=== PATIENT | male | born 1970 | race Caucasian/White ===

== ENCOUNTER 2018-09-07 08:35 | Outpatient (REF) | payer OTHER, SELFPAY ==
[2018-09-07 12:36] LABS: Anion Gap 11.5 mmol/L (3-11); BUN 16 mg/dL (7-18); CO2 27.5 mmol/L (21.0-32.0); CREATININE 0.95 mg/dL (0.70-1.30); Calcium 8.7 mg/dL (8.5-10.1); Chloride 103 mmol/L (98-107); Glucose 111 mg/dL (70-100); Potassium 4.7 mmol/L (3.5-5.1); Sodium 142 mmol/L (136-145)
== END 2018-09-07 08:55 ==
LOC: NCHCN 08:35
PROVIDERS: PCP Nurse Practitioner Family; Visit Provider Nurse Practitioner Family
DX: E21.0 Primary hyperparathyroidism (principal)
CPT/HCPCS: 80048

== ENCOUNTER 2019-01-27 08:08 | Outpatient (REF) | payer OTHER, SELFPAY ==
[2019-01-27 13:34] LABS: BUN 17 mg/dL (7-18); CREATININE 1.04 mg/dL (0.70-1.30); Calcium 8.4 mg/dL (8.5-10.1); Chloride 103 mmol/L (98-107); Cholesterol 195 mg/dL (50-200); Glucose 93 mg/dL (70-100); HDL Cholesterol 30 mg/dL (40-60); LDL CHOLESTEROL 143 mg/dL (<100); Potassium 4.6 mmol/L (3.5-5.1); Sodium 142 mmol/L (136-145); Triglyceride 110 mg/dL (30-150)
== END 2019-01-27 08:28 ==
LOC: NCHCN 08:08
PROVIDERS: PCP Nurse Practitioner Family; Visit Provider Nurse Practitioner Family
DX: E21.0 Primary hyperparathyroidism (principal); E78.5 Hyperlipidemia, unspecified
CPT/HCPCS: 80048; 80061; 83721

== ENCOUNTER 2019-02-28 07:50 | Emergency (ER) | payer OTHER, SELFPAY ==
[2019-02-28 07:54] VITALS: BP 123/82; PULSE 64; RESP 16; TEMP 36.5; O2SAT 97
--- NOTE | 2019-02-28 07:55 | W.ED.GENAD ---
Discharge Plan Disposition Patient Disposition: HOME Condition: Stable Discharge Details Chief Complaint: Vascular Clinical Impression: DVT (deep venous thrombosis) Primary Care Provider: Destini Bajwa ED Provider: Enid Stephens Home Meds and New Rx's Prescriptions: New Eliquis 5 mg tablet See Rx Instructions .ROUTE .COMPLEX Qty: 68 RF: 0 Discontinued ibuprofen [Advil Liqui-Gel] 200 MG capsule 600 mg PO Q6H PRN Qty: 0 RF: 0 No Action Probiotic 1 EACH capsule 2 ea PO HS RF: 0 acetaminophen [Tylenol Extra Strength] 500 MG tablet 500 mg PO PRN PRNRF: 0 bupropion HCl [Wellbutrin SR] 150 mg Tablet Sustained-Release 12 Hr 150 mg PO BID RF: 0 Glucosamine Chondroitin PLUS [id number] mg Capsule 1 cap PO BID RF: 0 triamcinolone acetonide 0.1 % Cream 1 applic TOPICAL DAILY RF: 0 magnesium 250 mg Tablet 250 mg PO DAILY RF: 0 Discharge Instructions Instructions: Apixaban (By mouth) Additional Instructions: Please return immediately to the emergency department if you develop any new or worsening symptoms or if you become otherwise concerned. It is extremely important that you call as soon as possible to schedule a follow-up appointment with your primary care doctor in follow-up this visit. Referrals: Destini Bajwa [Primary Care Provider] - Medical Decision Making Omi Vega is a 48-year-old man with history of diverticulitis status post bowel resection and ostomy reversal, hyperparathyroidism status post parathyroid resection who presented to the emergency department with mild lower extremity cramping over the past few months and sudden onset left posterior calf pain that was severe this morning and has now improved. On exam patient is very well and nontoxic appearing. Cardiopulmonary exam is benign. Left posterior calf is tender to palpation without skin changes or edema. Concern for DVT versus metabolic/lyte disturbance versus nonspecific myalgia versus other. Suspect episode of lightheadedness secondary to severe pain, doubt arrhythmia. Exam/history is not consistent with myositis, cellulitis, other infectious etiology, emergent bony pathology, pulmonary embolism, ACS. Plan for screening labs, EKG, ultrasound. Calcium borderline, 1000mg PO calcium carbonate given. Ultrasound positive for DVT. INR sent and resulted as normal. Patient without significant risk for bleeding and is appropriate for outpatient therapy with Eliquis. Had a lengthy discussion with the patient regarding risks and benefits of Eliquis for treatment, and patient is amenable to this plan. Had a lengthy discussion with the patient and his regarding return to emergency department precautions, importance of outpatient follow-up with his PCP, and home care. Patient verbalized understanding of the plan and was amenable. Patient was discharged home with clear plan for outpatient follow-up and was placed on care management list for outpatient follow-up. All questions were answered. Medical Records Medical records reviewed: Yes I reviewed the patient's medical records. Lab Data Lab results reviewed: Yes I reviewed the patient's lab results. Laboratory Tests Range/Units 02/28/19 02/28/19 02/28/19 08:25 08:25 08:25 WBC (4.4-10.8) k/cumm 6.39 RBC (4.50-6.00) m/cumm 5.22 Hgb (13.5-17.5) g/dL 14.6 Hct (40.0-50.0) % 43.6 MCV (80-95) fL 83.5 MCH (27.0-33.0) pg 28.0 MCHC (32.0-36.0) g/dL 33.5 RDW (11.8-14.1) % 13.7 Plt Count (130-400) x1000/uL 207 MPV (8.0-11.0) fL 9.4 Immature Gran % 0.2 Neutrophils % 69.8 Lymphocytes % 18.2 Monocytes % 8.0 Eosinophils % 3.3 Basophils % 0.5 Absolute Neutrophils (1.2-6.7) k/cumm 4.47 Absolute Lymphocytes (1.2-3.4) k/cumm 1.16 L Absolute Monocytes (0.11-0.7) k/cumm 0.51 Absolute Eosinophils (0.0-0.7) k/cumm 0.21 Absolute Basophils (0.0-0.2) k/cumm 0.03 Sodium (136-145) mmol/L 136 Potassium (3.5-5.1) mmol/L 4.1 Chloride (98-107) mmol/L 101 Carbon Dioxide (21.0-32.0) mmol/L 25.3 Anion Gap (3-11) mmol/L 9.7 BUN (7-18) mg/dL 14 Creatinine (0.70-1.30) mg/dL 1.17 Estimated GFR/1.73 m2 (mL/min/1.73m2) >= 60.00 Glucose (70-100) mg/dL 167 H Calcium (8.5-10.1) mg/dL 8.4 L Magnesium (1.8-2.4) mg/dL 1.9 Total Bilirubin (0.2-1.0) mg/dL 0.5 AST (15-37) U/L 17 ALT (12-78) U/L 22 Alkaline Phosphatase (46-116) U/L 32 L Total Protein (6.4-8.2) g/dL 7.4 Albumin (3.4-5.0) g/dL 3.3 L Urine Color (Yellow) Urine Clarity Urine pH (5-8) Ur Specific [place] (1.005-1.025) Urine Protein (Negative) mg/dL Urine Ketones (Negative) mg/dL Urine Blood (Negative) Urine Nitrite (Negative) Urine Bilirubin (Negative) Urine Urobilinogen (Up TO 0.2) EU/dL Ur Leukocyte Esterase (Negative) Urine Glucose (Negative) mg/dL Range/Units 02/28/19 08:30 WBC (4.4-10.8) k/cumm RBC (4.50-6.00) m/cumm Hgb (13.5-17.5) g/dL Hct (40.0-50.0) % MCV (80-95) fL MCH (27.0-33.0) pg MCHC (32.0-36.0) g/dL RDW (11.8-14.1) % Plt Count (130-400) x1000/uL MPV (8.0-11.0) fL Immature Gran % Neutrophils % Lymphocytes % Monocytes % Eosinophils % Basophils % Absolute Neutrophils (1.2-6.7) k/cumm Absolute Lymphocytes (1.2-3.4) k/cumm Absolute Monocytes (0.11-0.7) k/cumm Absolute Eosinophils (0.0-0.7) k/cumm Absolute Basophils (0.0-0.2) k/cumm Sodium (136-145) mmol/L Potassium (3.5-5.1) mmol/L Chloride (98-107) mmol/L Carbon Dioxide (21.0-32.0) mmol/L Anion Gap (3-11) mmol/L BUN (7-18) mg/dL Creatinine (0.70-1.30) mg/dL Estimated GFR/1.73 m2 (mL/min/1.73m2) Glucose (70-100) mg/dL Calcium (8.5-10.1) mg/dL Magnesium (1.8-2.4) mg/dL Total Bilirubin (0.2-1.0) mg/dL AST (15-37) U/L ALT (12-78) U/L Alkaline Phosphatase (46-116) U/L Total Protein (6.4-8.2) g/dL Albumin (3.4-5.0) g/dL Urine Color (Yellow) Yellow Urine Clarity Clear Urine pH (5-8) 5.5 Ur Specific [place] (1.005-1.025) 1.025 Urine Protein (Negative) mg/dL Negative Urine Ketones (Negative) mg/dL Negative Urine Blood (Negative) Negative Urine Nitrite (Negative) Negative Urine Bilirubin (Negative) Negative Urine Urobilinogen (Up TO 0.2) EU/dL 0.2 Ur Leukocyte Esterase (Negative) Negative Urine Glucose (Negative) mg/dL Negative ECG Data Attestation: I personally reviewed and interpreted this ECG (s) as follows: Interpretation: EKG shows sinus rhythm at 63 with normal axis, no STEMI, no burgada/HOCM/WPW/long QT, non-diagnostic EKG HPI General Mode of arrival: ambulatory. Date/Time Provider Initiated Documentation: 02/28/19 07:55. Limitations to Documentation: no limitations. Information obtained by: patient, family and RN notes reviewed. HPI Narrative: Omi Vega is a 48-year-old man with history of diverticulitis with bowel perforation 2017 status post bowel resection, ostomy, and ostomy reversal 2018, hyperparathyroidism status post parathyroid resection presenting to the emergency department with left calf pain. Patient reports that over the past few months he has had intermittent cramping of both calves, worse at night, worse in the right calf. Patient reports that this morning, he was standing in line when he had sudden onset severe cramping in the left posterior calf. Has never had similar severe cramping in the past. Patient reports that he also became somewhat lightheaded and was sweating during the episode. Patient sat down. He reports that the pain in his calf gradually improved. He reports that he still has mild pain in the left posterior calf. He denies any other pain. He has had mild cold symptoms over the past week with nasal congestion and mild cough, but reports that other than calf pain this morning has been feeling well in his usual state of health. He denies shortness of breath, vomiting, diarrhea, numbness, weakness the extremities, swelling, skin redness. Uses chewing tobacco, denies alcohol/drug use. No recent travel or mobilization. Has been eating and drinking as usual. No other recent episodes of near syncope, no history of fainting. No recent shortness of breath/chest pain/presyncopal symptoms during exertion. Related Data Home Medications Medication Instructions Recorded Confirmed Probiotic 2 ea PO HS 07/16/17 02/28/19 acetaminophen [Tylenol Extra 500 mg PO PRN PRN 08/27/17 02/28/19 Strength] apixaban [Eliquis] See Rx Instructions .ROUTE 02/28/19 .COMPLEX #68 tab bupropion HCl [Wellbutrin SR] 150 mg PO BID 02/28/19 02/28/19 [id number] 1 cap PO BID 02/28/19 02/28/19 [Glucosamine Chondroitin PLUS] magnesium 250 mg PO DAILY 02/28/19 02/28/19 triamcinolone acetonide 1 applic TOPICAL DAILY 02/28/19 02/28/19 Previous Rx's Medication Instructions Recorded apixaban [Eliquis] See Rx Instructions .ROUTE 02/28/19 .COMPLEX #68 tab Allergies Allergy/AdvReac Type Severity Reaction Status Date / Time Penicillins Allergy Severe Anaphylaxsi Unverified 02/28/19 08:01 s Review of Systems Review of Systems Constitutional: denies fevers Eyes: denies eye pain ENT: denies facial pain, dental pain, sore throat Cardiovascular: denies chest pain Respiratory: denies SOB, reports mild cough GI: denies abdominal pain, vomiting, diarrhea : denies flank pain MSK: denies back pain, neck pain, arthralgias, reports myalgias as per HPI Skin: denies rash Neuro: denies headaches, numbness, weakness [facility] Medical History Diverticular disease of colon Dyspepsia Primary hyperparathyroidism Renal calculus, left Surgical History Colectomy (09/23/17) Colonoscopy - MAC (09/09/17) Parathyroidectomy Tonsillectomy and adenoidectomy Social History Smoking/Tobacco Use Status: Current every day Tobacco Type: smokeless tobacco Alcohol Intake: current Alcohol Intake frequency: a few times a month Drug use: Never Do you feel safe at home: Yes Do you feel safe in your relationship?: Yes Exam Narrative Exam Narrative: Constitutional: well and [id number], pleasant, conversing normally HENT: head atraumatic/normocephalic/normal inspection, mucous membranes moist Eyes: conjunctiva normal, sclera normal, pupils 3mm b/l Neck: no stridor, normal ROM, trachea midline Resp: normal work of breathing, LCTAB Cardio: normal rate, normal rhythm, no murmur appreciated Skin: warm, dry, normal color, no rash Neuro: alert, not altered, grossly non-focal, normal tone Ext: no lower extremity edema, mild tenderness palpation left posterior calf and left popliteal area, no rash or overlying skin changes, no induration or mass noted, DP pulses intact and symmetric, normal range of motion of the left knee and ankle without pain Psych: normal mood, normal affect, normal behavior
[2019-02-28 07:59] VITALS: RESP 16
--- NOTE | 2019-02-28 08:14 | DI.US_ITS ---
SYMPTOM/DIAGNOSIS: LEFT CALF PAIN LEFT LOWER EXTREMITY ULTRASOUND: There is hypoechoic occlusive thrombus seen extending from the left femoral vein in to the popliteal vein and the distal posterior tibialis vein. The saphenofemoral junction appears unremarkable. No focal fluid collection is seen in the left lower extremity. IMPRESSION: Findings consistent with a left lower extremity deep venous thrombus extending from the distal left femoral vein through the popliteal vein in to the distal posterior tibialis vein. The findings were discussed with the Emergency Department on the date of the examination.
[2019-02-28 08:34] LABS: Abs Immature Grans 0.01 k/cumm (0.0-0.09); Absolute Basophil Count 0.03 k/cumm (0.0-0.2); Absolute Eosinophil Count 0.21 k/cumm (0.0-0.7); Absolute Lymphocyte Count 1.16 k/cumm (1.2-3.4); Absolute Monocyte Count 0.51 k/cumm (0.11-0.7); Absolute Neutrophil Count 4.47 k/cumm (1.2-6.7); Basophils % 0.5; Eosinophils % 3.3; HCT 43.6 % (40.0-50.0); HGB 14.6 g/dL (13.5-17.5); Immature Grans % 0.2; Lymphocytes % 18.2; Mean Corp. HGB Concentration 33.5 g/dL (32.0-36.0); Mean Corpuscular Volume 83.5 fL (80-95); Mean Platelet Volume 9.4 fL (8.0-11.0); Neutrophils % 69.8; Platelet Count 207 x1000/uL (130-400); RBC 5.22 m/cumm (4.50-6.00); RBC Distribution Width 13.7 % (11.8-14.1); White Blood Cell Count 6.39 k/cumm (4.4-10.8)
[2019-02-28 08:36] LABS: Bilirubin Negative (Negative); Blood Negative (Negative); Clarity Clear; Glucose Negative (Negative); Ketones Negative (Negative); Leukocyte Esterase Negative (Negative); Nitrite Negative (Negative); Specific Gravity 1.025 (1.005-1.025); Urobilinogen 0.2 EU/dL (Up TO 0.2); pH 5.5 (5-8)
[2019-02-28 08:46] LABS: ALT 22 U/L (12-78); AST 17 U/L (15-37); Albumin 3.3 g/dL (3.4-5.0); Alkaline Phosphatase 32 U/L (46-116); Anion Gap 9.7 mmol/L (3-11); BUN 14 mg/dL (7-18); Bilirubin, Total 0.5 mg/dL (0.2-1.0); CO2 25.3 mmol/L (21.0-32.0); CREATININE 1.17 mg/dL (0.70-1.30); Calcium 8.4 mg/dL (8.5-10.1); Chloride 101 mmol/L (98-107); Glucose 167 mg/dL (70-100); Potassium 4.1 mmol/L (3.5-5.1); Sodium 136 mmol/L (136-145); Total Protein 7.4 g/dL (6.4-8.2)
[2019-02-28 09:12] LABS: Magnesium 1.9 mg/dL (1.8-2.4)
[2019-02-28] MEDS: Calcium Carbonate *TUMS* 500 MG CHEW 1000 MG PO (09:22)
[2019-02-28 10:42] VITALS: BP 116/76; PULSE 59; RESP 16; TEMP 36.5; O2SAT 96
[2019-02-28 11:06] LABS: INR 0.9 (0.9-1.1); Prothrombin Time 9.4 sec (9.3-11.0)
[2019-02-28] MEDS: Apixaban 5 MG TAB 10 MG PO (11:22)
[2019-02-28 11:32] VITALS: BP 116/76; PULSE 59; RESP 16; TEMP 36.5; O2SAT 96
--- NOTE | 2019-02-28 11:34 | NUR.NOTE ---
Nursing Note: Referral faxed to [facility] for follow up. Ary Ha.
== END 2019-02-28 11:34 | disposition home or self-care (01) ==
PROVIDERS: Emergency Provider Student in an Organized Health Care Education/Training Program; PCP Nurse Practitioner Family
DX: I82.432 Acute embolism and thrombosis of left popliteal vein (principal); I82.412 Acute embolism and thrombosis of left femoral vein; I82.442 Acute embolism and thrombosis of left tibial vein
CPT/HCPCS: 36415; 80053; 93005; 99285; 81003; 83735; 85025; 85610; 93010; 93971

== ENCOUNTER 2019-05-26 03:50 | Outpatient (CLI) | payer OTHER, SELFPAY ==
--- NOTE | 2019-05-26 15:57 | DI.US_ITS ---
SYMPTOM/DIAGNOSIS: DVT, I 82.90, 3-MO F/U DUPLEX VENOUS ULTRASOUND LEFT LOWER EXTREMITY: 05/26 Duplex evaluation of the deep venous system of the left lower extremity was performed according to the usual protocol. The previous examination of 02/28/2019 showed DVT from the left distal femoral vein through the popliteal vein in to tibialis posterior veins. On today's examination the femoral vein distally is compressible. There is visible thrombus in popliteal vein and posterior tibial vein. CONCLUSION: Recurrent or persistent popliteal/posterior tibial DVT. The previously noted DVT in the distal femoral vein is less prominent or absent on today's examination.
== END 2019-05-26 04:10 ==
PROVIDERS: PCP Nurse Practitioner Family; Visit Provider Nurse Practitioner Family
DX: I82.432 Acute embolism and thrombosis of left popliteal vein (principal); I82.442 Acute embolism and thrombosis of left tibial vein
CPT/HCPCS: 93971

== ENCOUNTER 2019-09-20 08:53 | Outpatient (CLI) | payer OTHER, SELFPAY ==
--- NOTE | 2019-09-20 12:28 | DI.US_ITS ---
EXAM: US LOWER EXTREMITY VENOUS LT US LOWER EXTREMITY VENOUS LT CLINICAL HISTORY: DVT I82.90, F/U DVT 05/2019. DVT I82.90, F/U DVT 05/2019 TECHNIQUE: Ultrasound performed using standard protocol. COMPARISON: US LOWER EXTREMITY VASCULAR LT from 05/26/2019 FINDINGS: Duplex venous ultrasound was performed according to the usual protocol. The deep veins are freely com pressible throughout and there is normal flow augmentation with manual calf compression. 2D and Doppl er evaluation are unremarkable. IMPRESSION: No evidence of deep venous thrombosis of the lower extremity
== END 2019-09-20 09:13 ==
PROVIDERS: PCP Nurse Practitioner Family; Visit Provider Nurse Practitioner Family
DX: I82.432 Acute embolism and thrombosis of left popliteal vein (principal)
CPT/HCPCS: 93971

== ENCOUNTER 2020-07-30 10:19 | Outpatient (REF) | payer OTHER, SELFPAY ==
[2020-07-30 19:14] LABS: Anion Gap 11.2 mmol/L (3-11); BUN 17 mg/dL (7-18); CO2 26.8 mmol/L (21.0-32.0); CREATININE 1.17 mg/dL (0.70-1.30); Calcium 8.4 mg/dL (8.5-10.1); Calculated LDL 157 mg/dL (<100); Chloride 102 mmol/L (98-107); Cholesterol 219 mg/dL (<200); Glucose 111 mg/dL (74-106); HDL Cholesterol 32 mg/dL (40-60); Potassium 4.4 mmol/L (3.5-5.1); Sodium 140 mmol/L (136-145); Triglyceride 153 mg/dL (<150)
[2020-08-01 14:39] LABS: PSA, Screening 0.4 ng/mL (0-3.5)
== END 2020-07-30 10:39 ==
LOC: NCHCN 10:19
PROVIDERS: PCP Nurse Practitioner Family; Visit Provider Physician Assistant
DX: E21.0 Primary hyperparathyroidism (principal); E78.5 Hyperlipidemia, unspecified; Z12.5 Encounter for screening for malignant neoplasm of prostate
CPT/HCPCS: 80048; 80061; 84153

== ENCOUNTER 2021-09-17 08:18 | Outpatient (REF) | payer OTHER, SELFPAY ==
[2021-09-17 15:01] LABS: Anion Gap 10.4 mmol/L (3-11); BUN 22 mg/dL (7-18); CO2 26.6 mmol/L (21.0-32.0); CREATININE 1.2 mg/dL (0.70-1.30); Calcium 8.7 mg/dL (8.5-10.1); Calculated LDL 154 mg/dL (<100); Chloride 104 mmol/L (98-107); Cholesterol 229 mg/dL (<200); Glucose 117 mg/dL (74-106); HDL Cholesterol 34 mg/dL (40-60); Potassium 4.9 mmol/L (3.5-5.1); Sodium 141 mmol/L (136-145); Triglyceride 207 mg/dL (<150)
== END 2021-09-17 08:19 | disposition home or self-care (01) ==
LOC: NCHCN 08:18
PROVIDERS: PCP Nurse Practitioner Family; Visit Provider Nurse Practitioner Family
DX: Z00.00 Encounter for general adult medical examination without abnormal findings (principal); E78.5 Hyperlipidemia, unspecified
CPT/HCPCS: 80048; 80061

== ENCOUNTER 2023-01-15 13:23 | Outpatient (REF) | payer OTHER, SELFPAY ==
[2023-01-15 15:53] LABS: Abs Immature Grans 0.02 10^3/uL (0.0-0.06); Absolute Basophil Count 0.05 10^3/uL (0.0-0.2); Absolute Eosinophil Count 0.13 10^3/uL (0.0-0.7); Absolute Lymphocyte Count 1.87 10^3/uL (1.2-3.4); Absolute Monocyte Count 0.62 10^3/uL (0.1-0.8); Absolute Neutrophil Count 4.53 10^3/uL (1.2-6.7); Basophils % 0.7; Eosinophils % 1.8; HCT 46.5 % (40.0-50.0); HGB 15.5 g/dL (13.5-17.5); Immature Grans % 0.3; Lymphocytes % 25.9; MCH 28.5 pg (27.0-33.0); MCHC 33.3 % (32.0-36.0); MCV 86 fL (80-95); MPV 9.8 fL (8.0-11.0); Monocytes % 8.6; Neutrophils % 62.7; Platelet Count 239 10^3/uL (130-400); RBC 5.43 10^6/uL (4.36-5.78); RDW 12.5 % (11.8-14.1); RDW-SD 38.6 fL; WBC 7.22 10^3/uL (4.4-10.8)
[2023-01-15 16:17] LABS: ALT 30 U/L (16-63); AST 19 U/L (15-37); Albumin 3.8 g/dL (3.4-5.0); Alkaline Phosphatase 35 U/L (46-116); Anion Gap 9.9 mmol/L (3-11); BUN 21 mg/dL (7-18); Bilirubin, Total 0.7 mg/dL (0.2-1.0); CO2 26.1 mmol/L (21.0-32.0); CREATININE 1.1 mg/dL (0.70-1.30); Calcium 8.4 mg/dL (8.5-10.1); Calculated LDL 140 mg/dL (<100); Chloride 103 mmol/L (98-107); Cholesterol 204 mg/dL (<200); Estimated GFR 79.77 (mL/min/1.73m2); Glucose 112 mg/dL (74-106); HDL Cholesterol 33 mg/dL (40-60); Potassium 4.3 mmol/L (3.5-5.1); Sodium 139 mmol/L (136-145); TSH (W/Ref FT4) 1.03 uIU/mL (0.36-3.74); Total Protein 7.8 g/dL (6.4-8.2); Triglyceride 157 mg/dL (<150)
[2023-01-15 17:19] LABS: Hemoglobin A1C 5.9 % (<5.7)
[2023-01-17 11:49] LABS: HIV-1/2 Ag & Ab Screen Negative (Negative)
[2023-01-19 11:04] LABS: Hepatitis C Ab w Rflx HCV PCR Negative (Negative)
== END 2023-01-15 13:24 | disposition home or self-care (01) ==
LOC: NCHCN 13:23
PROVIDERS: PCP Nurse Practitioner Family; Visit Provider Nurse Practitioner Family
DX: Z71.89 Other specified counseling (principal); R73.03 Prediabetes; E21.0 Primary hyperparathyroidism; K57.30 Diverticulosis of large intestine without perforation or abscess without bleeding; E78.5 Hyperlipidemia, unspecified; F17.220 Nicotine dependence, chewing tobacco, uncomplicated; Z86.718 Personal history of other venous thrombosis and embolism; Z79.01 Long term (current) use of anticoagulants
CPT/HCPCS: 80053; 80061; 86803; 87389; 83036; 84443; 85025

== ENCOUNTER 2023-05-06 10:57 | Outpatient (REF) | payer OTHER, SELFPAY ==
[2023-05-06 16:19] LABS: ALT 22 U/L (16-63); AST 14 U/L (15-37); Albumin 3.6 g/dL (3.4-5.0); Alkaline Phosphatase 32 U/L (46-116); Anion Gap 11.4 mmol/L (3-11); BUN 15 mg/dL (7-18); Bilirubin, Total 0.9 mg/dL (0.2-1.0); CO2 27.6 mmol/L (21.0-32.0); Chloride 104 mmol/L (98-107); Estimated GFR 89.44 (mL/min/1.73m2); Glucose 98 mg/dL (74-106); Potassium 4.9 mmol/L (3.5-5.1); Sodium 143 mmol/L (136-145); Total Protein 7.5 g/dL (6.4-8.2)
[2023-05-06 17:51] LABS: Vitamin D 25 Total 26.6 ng/mL (30-100)
== END 2023-05-06 10:58 | disposition home or self-care (01) ==
LOC: NCHCN 10:57
PROVIDERS: PCP Nurse Practitioner Family; Visit Provider Nurse Practitioner Family
DX: R73.03 Prediabetes (principal); E21.0 Primary hyperparathyroidism; E55.9 Vitamin D deficiency, unspecified
CPT/HCPCS: 80053; 82306

== ENCOUNTER 2023-05-15 09:51 | Day surgery (SDC) | payer OTHER, SELFPAY ==
--- NOTE | 2023-05-14 19:58 | PDOC.DSDIS_ITS ---
Date of service: 05/15/23 Time of Service: 11:19 Discharge Plan Disposition Patient Disposition: Home Condition: Good Discharge Details Reason For Visit: colon scope Attending Provider: Ashley Martini Primary Care Provider: REMIGIO DEMPSEY Home Meds and New Rx's Prescriptions: Continued calcium carbonate-vitamin D3 [Calcium 600 with Vitamin D3] 600 mg-12.5 mcg (500 unit) capsule 1 cap PO BID enoxaparin [Lovenox] 100 mg/mL syringe 90 mg subcut Q12H Qty: 10 0RF Rx Instructions: last injection should be given 12 hours before arrival time to hospital for procedure Probiotic 1 EACH capsule 2 ea PO HS acetaminophen [Tylenol Extra Strength] 500 MG tablet 500 mg PO PRN PRN triamcinolone acetonide 0.1 % Cream 1 applic TOPICAL DAILY Held Eliquis 5 mg tablet 5 mg PO BID Hold Instructions: Resume on 05/18/23. Discontinued polyethylene glycol 3350 17 gram/dose powder 238 g PO ONCE Qty: 238 0RF Rx Instructions: take per colonoscopy instructions bisacodyl [Dulcolax (bisacodyl)] 5 mg tablet,delayed release (DR/EC) 5 mg PO ONCE Qty: 4 0RF Rx Instructions: take per colonoscopy instructions Discharge Instructions Additional Instructions: DSU Colonoscopy Post- Op Instructions Instructions for Everyone who is given Anesthes ia: For your safety, please do the following for the next twenty-four (24) hours: *Do Not operate a motor vehicle (car, truck, motorcycle, etc.) *Do Not drink alcoholic beverages or use any recreational drugs for the first 24 hours or while taking pain medications. The medications in your body may have a reaction that can be dangerous. *Do Not make any important decisions or sign any important papers. Findings: Minor diverticula of the left colon. Make sure you are moving your bowels on a regular basis and you are not straining to go to the bathroom. If you find you are having problems with constipation, then I recommend taking a fiber supplement such as Metamucil, daily. Follow up: Repeat colonoscopy in 10 years time 1. No lifting over 20 pounds or strenuous activity for the first 24 hours after your procedure. After 24 hours there are no restrictions on your activity but you may feel fatigued for a few days. 2. After you arrive home you may have a light meal and return to your normal diet as you can tolerate it without feeling sick to your stomach. 3. You may have a bloated, gaseous feeling in your belly (abdomen) after a colonoscopy. Passing gas and belching will help. Walking or lying down on your left side with your knees flexed may relieve the discomfort. Call the office at [phone] (Office) or [phone] (Hospital) right away if you notice any of the following: a.Vomiting of blood or ?coffee ground stools?. b.Rectal bleeding 1Tbsp, blood clots or continuous bleeding. c.Severe belly (abdominal) pain. d.A hard distended belly (abdomen) and an inability to pass gas. 4. Please don?t expect to have a normal BM (bowel movement) for 2-3 days after your procedure. 5. If there are questions regarding the findings of your procedure, please contact your doctor 6. If you are unable to contact your doctor with a problem, contact the hospital at [phone]. 7. Continue all your regular medications unless directed otherwise. I understand the above instructions and have no questions. Signature of Patient or Adult Escort Name of Responsible Adult Escort Signature of Nurse Date/Time Activity:: see above Activity:: see above Diet:: See above Discharge Orders Discharge Orders: Discharge Order (Routine); Ordered 05/15/23 Ordered By: Ashley Martini DS: Diagnosis Discharge Diagnosis (1) Screening for malignant neoplasm of colon performed: Status: Acute Asessment and Plan: The patient is seen and examined after their colonoscopy.? The patient has been able to pass gas.? They are not having abdominal pain.? They have been able to tolerate liquids and a snack.? They do not have any nausea or vomiting.? They are not having any chest pain or shortness of breath.??? They are not having any rectal bleeding. Their vital signs have been stable-see nursing notes. We discussed findings during their colonoscopy, and any biopsies that were done/polyps that were removed. The patient will be sent a letter with any biopsy results, and when to repeat the colonoscopy.-see discharge instructions. Patient was given explicit instructions to follow-up regarding colonoscopy-refer to discharge instructions.? We reviewed resumption of medications. Patient verbalized understanding and discharged in stable and satisfactory condition- See nursing notes. (2) Diverticula of colon: Status: Acute
--- NOTE | 2023-05-14 20:01 | W.COLOREPORT ---
Date of service: 05/15/23 Time of Service: 11:16 Colonoscopy Report Date of procedure: 05/15/23 Pre-op diagnosis general: crc screening Post-op diagnosis procedure note: other (Mild diverticula) Surgeon: Ashley Martini Anesthesia Type: General:No Airway Estimated blood loss (mL): 0 Pathology: none sent Complications: None Disposition: same day Prep: Miralax/Dulcolax Retraction Time: 9 Procedure Description: After informed consent was obtained the patient was taken to the procedure room and placed in a left decubitous position. Monitors were applied and a time out was done. The patients name, date of , procedure, allergies to medications and metal in their body was reviewed. The patient was then sedated. Once sedated and comfortable a rectal exam was done. External exam was normal. Internal exam revealed a normal sphincter tone and no palpable masses. The prostate normal. The scope was then introduced and retrofelexed. Grade 1 internal hemorrhoids were identified. The scope was then advanced to the cecum without difficulty. The TI and appendiceal orifice were identified. The prep was BBPS 3 in all segments for a total of 9. The patient has had a previous sigmoid resection for diverticular stricture. I did not appreciate his anastomosis. There is no stricture noted in the scope today. the scope was then slowly retracted over 9 minutes back into the rectum. there are no polyps or AVMs. There are a few small diverticula confined to the left colon. There are no signs of active bleeding or infection. The scope was removed and the patient was woken up and taken back to Same day surgery in stable condition. The patient tolerated the procedure well and there were no immediate complications. Follow up: The patient should follow up in 10 years unless they develop changes in bowel habits or other new gastrointestinal complaints.
[2023-05-15 10:33] VITALS: BP 125/88; PULSE 74; RESP 18; TEMP 36.4; O2SAT 94
--- NOTE | 2023-05-15 10:37 | W.ANESPRE ---
General Info Date of Service Date Performed: 05/15/23 Height: 5 ft 6 in Weight: 90.492 kg Body Mass Index (BMI): 32.1 Surgical Procedure: Operation Date: 05/15/23 10:35 Proposed Procedure Side Surgeon p Colonoscopy Ashley Maritni, Actual Procedure Side Surgeon p Colonoscopy Ashley Martini, DO Pre-Op Diagnosis Post-Op Diagnosis SCREENING SCREENING Meds Allergies and Home Medications Allergies Allergy/AdvReac Type Severity Reaction Status Date / Time Penicillins Allergy Severe Anaphylaxsi Unverified 05/15/23 10:25 s Home Medication Medication Instructions Recorded lactobacillus comb no.10 20 2 ea PO HS 07/16/17 billion cell capsule (Probiotic) acetaminophen 500 mg tablet 500 mg PO PRN PRN 08/27/17 (Tylenol Extra Strength) triamcinolone acetonide 0.1 % 1 applic topical DAILY 02/28/19 topical cream apixaban 5 mg tablet (Eliquis) 5 mg PO BID 04/30/23 calcium carbonate 600 mg-vitamin 1 cap PO BID 04/30/23 D3 12.5 mcg (500 unit) capsule (Calcium 600 with Vitamin D3) enoxaparin 100 mg/mL subcutaneous 90 mg (0.9 mL) subcut Q12H #10 mL 04/30/23 syringe (Lovenox) Current Visit Medications: Current Medications Generic Name Dose Route Start Last Admin Trade Name Freq PRN Reason Stop Dose Admin Hyoscyamine Sulfate 0.125 mg 05/15/23 03:13 Hyoscyamine 0.125 Mg Sl/Oral/Chew SL 06/14/23 03:12 DIRECTED PRN Ringer's Solution 1,000 mls @ 80 mls/hr 05/15/23 06:00 IV 05/15/23 23:59 [facility] IV Miscellaneous Supplies 1 each 05/15/23 06:00 Iv Access IV 05/15/23 23:59 DIRECTED BING Ondansetron HCl 4 mg 05/15/23 03:13 Ondansetron 4 Mg/2 Ml Vial IVP 06/14/23 03:12 Q4H PRN PRN Nausea / Vomiting Sodium Chloride 0 ml 05/15/23 06:00 Normal Saline Flush 10 Ml Syr IV 05/15/23 23:59 PRN PRN Sodium Chloride 0 ml 05/15/23 06:00 Normal Saline 10 Ml Vial IJ 05/15/23 23:59 DIRECTED PRN Sterile Water 0 ml 05/15/23 06:00 Water,Injection,Sterile 10 Ml Vial IJ 05/15/23 23:59 DIRECTED PRN PFSH Active Problems Active Problems: Problem Status Onset Code Screening for malignant neoplasm of colon performed Z12.11 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 Anastomotic leak of intestine K91.89 s/p ileostomy takedown Medical History Medical History Diverticular disease of colon Dyspepsia History of DVT of lower extremity 2021 Primary hyperparathyroidism s/p resection Renal calculus, left Surgical History Surgical History Colectomy (09/23/17) reversal 01/20/18 Colonoscopy - MAC (09/09/17) Parathyroidectomy Tonsillectomy and adenoidectomy Tobacco Smoking/Tobacco Use Status: Current every day Tobacco Type: smokeless tobacco Alcohol Alcohol Intake: current Alcohol intake frequency: a few times a month Substance Use Substance use: Never Substance use type: does not use Vital Signs and Lab Results Vital Signs Most Recent Vital Signs in EMR: Most Recent Vital Signs Temp Pulse Resp BP Pulse Ox 36.4 C L 74 18 125/88 94 05/15/23 10:33 05/15/23 10:33 05/15/23 10:33 05/15/23 10:33 05/15/23 10:33 Lab Results Blood Type / Crossmatch: No Data to Display Complete Blood Count: No Data to Display Complete Metabolic Panel: Sodium 143 mmol/L (136-145) 05/06/23 08:30 Potassium 4.9 mmol/L (3.5-5.1) 05/06/23 08:30 Chloride 104 mmol/L (98-107) 05/06/23 08:30 Carbon Dioxide 27.6 mmol/L (21.0-32.0) 05/06/23 08:30 BUN 15 mg/dL (7-18) 05/06/23 08:30 Creatinine 1.0 mg/dL (0.70-1.30) 05/06/23 08:30 Est GFR (CKD-EPI 2020) 89.44 (mL/min/1.73m2) 05/06/23 08:30 Calcium 9.0 mg/dL (8.5-10.1) 05/06/23 08:30 Albumin 3.6 g/dL (3.4-5.0) 05/06/23 08:30 Glucose 98 mg/dL (74-106) 05/06/23 08:30 Liver Function Panel: Alanine Aminotransferase (ALT/SGPT) 22 U/L (16-63) 05/06/23 08:30 Aspartate Amino Transf (AST/SGOT) 14 U/L (15-37) L 05/06/23 08:30 Coagulation Panel: No Data to Display Cardiac Panel: No Data to Display Arterial Blood Gas: No Data to Display Venous Blood Gas: No Data to Display Pancreas Panel: No Data to Display Thyroid Panel: No Data to Display Infectious Disease: No Data to Display Blood Cultures: No Data to Display Toxicology Panel: No Data to Display Anesthesia Assessment and Plan Anesthesia History Personal History: No History of Anesthesia Complications Family History: No Family History of Anesthesia Complications Exercise Tolerance Exercise Tolerance: Metabolic Equivalents>4 Pertinent Negatives Pertinent Negatives: No Symptoms of GERD, No Major Cardiovascular Symptoms or Complaints and No Major Pulmonary Symptoms or Complaints Cardiac & Pulmonary Exam Cardiac Exam: Normal S1/S2 Heart Sounds Pulmonary Exam: Clear Bilateral Breath Sounds Implantable Cardiac Device Does patient have a Pacemaker or an ICD?: No Airway Exam Known Difficult Airway: No Mallampati Class: 1 Mouth Opening: Normal (> 3cm) Thyromental Distance: Less than 3 cm Neck Range of Motion: Full ROM Neck Circumference: Normal Teeth Condition: Normal Dentition ASA Classification ASA Score: ASA 3 Emergency Case?: No NPO Status NPO Status: NPO Clears >2 hours, Solids >8 hours Anesthesia Plan Resuscitation Status: Full Code Anesthesia Technique: General Anesthesia Airway Planned: Natural Airway Monitors Used: Standard Monitors
[2023-05-15 10:40] VITALS: BMI 32.1
[2023-05-15] MEDS: Lactated Ringers 1,000 ML 80 ML IV (10:45)
[2023-05-15 11:18] VITALS: BP 125/88; PULSE 69; RESP 18; TEMP 36.3; O2SAT 96
--- NOTE | 2023-05-15 11:21 | ANES.PREOP_ITS ---
General Info Date of Service Date Performed: 05/15/23 Height: 5 ft 6 in Weight: 90.492 kg Body Mass Index (BMI): 32.1 Surgical Procedure: Operation Date: 05/15/23 10:35 Proposed Procedure Side Surgeon p Colonoscopy Ashley Martini, Actual Procedure Side Surgeon p Colonoscopy Ashley Martini, DO Pre-Op Diagnosis Post-Op Diagnosis SCREENING SCREENING Meds Allergies and Home Medications Allergies Allergy/AdvReac Type Severity Reaction Status Date / Time Penicillins Allergy Severe Anaphylaxsi Unverified 05/15/23 10:25 s Home Medication Medication Instructions Recorded lactobacillus comb no.10 20 2 ea PO HS 07/16/17 billion cell capsule (Probiotic) acetaminophen 500 mg tablet 500 mg PO PRN PRN 08/27/17 (Tylenol Extra Strength) triamcinolone acetonide 0.1 % 1 applic topical DAILY 02/28/19 topical cream apixaban 5 mg tablet (Eliquis) 5 mg PO BID 04/30/23 calcium carbonate 600 mg-vitamin 1 cap PO BID 04/30/23 D3 12.5 mcg (500 unit) capsule (Calcium 600 with Vitamin D3) enoxaparin 100 mg/mL subcutaneous 90 mg (0.9 mL) subcut Q12H #10 mL 04/30/23 syringe (Lovenox) Current Visit Medications: Current Medications Generic Name Dose Route Start Last Admin Trade Name Freq PRN Reason Stop Dose Admin Hyoscyamine Sulfate 0.125 mg 05/15/23 03:13 Hyoscyamine 0.125 Mg Sl/Oral/Chew SL 06/14/23 03:12 DIRECTED PRN Ringer's Solution 1,000 mls @ 80 mls/hr 05/15/23 06:00 05/15/23 11:13 IV 05/15/23 23:59 80 mls/hr INFUSION BING Infusion IV Miscellaneous Supplies 1 each 05/15/23 06:00 Iv Access IV 05/15/23 23:59 DIRECTED BING Ondansetron HCl 4 mg 05/15/23 03:13 Ondansetron 4 Mg/2 Ml Vial IVP 06/14/23 03:12 Q4H PRN PRN Nausea / Vomiting Sodium Chloride 0 ml 05/15/23 06:00 Normal Saline Flush 10 Ml Syr IV 05/15/23 23:59 PRN PRN Sodium Chloride 0 ml 05/15/23 06:00 Normal Saline 10 Ml Vial IJ 05/15/23 23:59 DIRECTED PRN Sterile Water 0 ml 05/15/23 06:00 Water,Injection,Sterile 10 Ml Vial IJ 05/15/23 23:59 DIRECTED PRN PFSH Active Problems Active Problems: Problem Status Onset Code Diverticula of colon K57.30 Screening for malignant neoplasm of colon performed Z12.11 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 Anastomotic leak of intestine K91.89 s/p ileostomy takedown Medical History Medical History (Updated 05/15/23 @ 11:21 by Ashley Martini DO) Diverticular disease of colon Dyspepsia History of DVT of lower extremity 2021 Primary hyperparathyroidism s/p resection Renal calculus, left Surgical History Surgical History Colectomy (09/23/17) reversal 01/20/18 Colonoscopy - MAC (09/09/17) Parathyroidectomy Tonsillectomy and adenoidectomy Tobacco Smoking/Tobacco Use Status: Current every day Tobacco Type: smokeless tobacco Alcohol Alcohol Intake: current Alcohol intake frequency: a few times a month Substance Use Substance use: Never Substance use type: does not use Details: pt denies chewing tobacco in last 6 hours, 05/15/23 mkb Vital Signs and Lab Results Vital Signs Most Recent Vital Signs in EMR: Most Recent Vital Signs Temp Pulse Resp BP Pulse Ox 36.4 C L 74 18 125/88 94 05/15/23 10:33 05/15/23 10:33 05/15/23 10:33 05/15/23 10:33 05/15/23 10:33 Lab Results Blood Type / Crossmatch: No Data to Display Complete Blood Count: No Data to Display Complete Metabolic Panel: Sodium 143 mmol/L (136-145) 05/06/23 08:30 Potassium 4.9 mmol/L (3.5-5.1) 05/06/23 08:30 Chloride 104 mmol/L (98-107) 05/06/23 08:30 Carbon Dioxide 27.6 mmol/L (21.0-32.0) 05/06/23 08:30 BUN 15 mg/dL (7-18) 05/06/23 08:30 Creatinine 1.0 mg/dL (0.70-1.30) 05/06/23 08:30 Est GFR (CKD-EPI 2020) 89.44 (mL/min/1.73m2) 05/06/23 08:30 Calcium 9.0 mg/dL (8.5-10.1) 05/06/23 08:30 Albumin 3.6 g/dL (3.4-5.0) 05/06/23 08:30 Glucose 98 mg/dL (74-106) 05/06/23 08:30 Liver Function Panel: Alanine Aminotransferase (ALT/SGPT) 22 U/L (16-63) 05/06/23 08: 30 Aspartate Amino Transf (AST/SGOT) 14 U/L (15-37) L 05/06/23 08: 30 Coagulation Panel: No Data to Display Cardiac Panel: No Data to Display Arterial Blood Gas: No Data to Display Venous Blood Gas: No Data to Display Pancreas Panel: No Data to Display Thyroid Panel: No Data to Display Infectious Disease: No Data to Display Blood Cultures: No Data to Display Toxicology Panel: No Data to Display Anesthesia Assessment and Plan Anesthesia History Personal History: No History of Anesthesia Complications Family History: No Family History of Anesthesia Complications Exercise Tolerance Exercise Tolerance: Metabolic Equivalents>4 Implantable Cardiac Device Does patient have a Pacemaker or an ICD?: No Airway Exam Known Difficult Airway: No Mallampati Class: 1 Mouth Opening: Normal (> 3cm) Thyromental Distance: Less than 3 cm Neck Range of Motion: Full ROM Neck Circumference: Normal Teeth Condition: Normal Dentition
--- NOTE | 2023-05-15 11:30 | W.ANESPOSTOP ---
Postoperative Evaluation Date, Time and Location Date Performed: 05/15/23 Time Performed: 11:31 Patient Location: Day Surgery Unit Vital Signs Most Recent Imported Vital Signs: Most Recent Vital Signs Temp Pulse Resp BP Pulse Ox 36.3 C L 69 18 125/88 96 05/15/23 11:18 05/15/23 11:18 05/15/23 11:18 05/15/23 11:18 05/15/23 11:18 Pain Score Most Recent Pain Score: Most Recent Pain Score Pain Level 0 05/15/23 10:33 Assessment Mental Status: Awake (Alert & Oriented to Patient Baseline) Airway and Respiratory Function: Patent airway with normal (patient baseline) respiratory exam Cardiovascular Function: Hemodynamically Stable Hydration Status: Adequately Hydrated Nausea & Vomiting: No Nausea or Vomiting Pain: Pt. Denies Any Pain Peripheral Nerve Block: Patient did not receive a nerve block
[2023-05-15 11:40] VITALS: BP 104/86; RESP 18; TEMP 36.5; O2SAT 95
== END 2023-05-15 12:13 | disposition home or self-care (01) ==
PROVIDERS: PCP Nurse Practitioner Family; Visit Provider Surgery
PROC: 0DJD8ZZ Inspection of Lower Intestinal Tract, Via Natural or Artificial Opening Endoscopic (ICD-10-PCS; CPT 45378; principal; 2023-05-15 10:30)
DX: Z12.11 Encounter for screening for malignant neoplasm of colon (principal); K57.30 Diverticulosis of large intestine without perforation or abscess without bleeding; Z98.0 Intestinal bypass and anastomosis status
CPT/HCPCS: 45378

== ENCOUNTER 2023-12-08 13:05 | Outpatient (REF) | payer OTHER, SELFPAY ==
[2023-12-08 15:54] LABS: Bilirubin Negative (Negative); Blood Large (Negative); Glucose Negative (Negative); Ketones Negative (Negative); Leukocyte Esterase Large (Negative); Nitrite Negative (Negative); Specific Gravity >= 1.030 (1.005-1.025); Urobilinogen 0.2 mg/dL (Up to 0.2)
[2023-12-08 15:57] LABS: Clarity Turbid (Clear)
[2023-12-08 16:10] LABS: C & S Indicated? C&S Done As Ordered; RBC >50 HPF (0-2)
== END 2023-12-08 13:06 | disposition home or self-care (01) ==
LOC: NCHCN 13:05
PROVIDERS: PCP Nurse Practitioner Family; Visit Provider Nurse Practitioner Family
DX: R31.0 Gross hematuria (principal)
CPT/HCPCS: 81003; 81015; 87086

== ENCOUNTER 2023-12-21 10:33 | Outpatient (CLI) | payer OTHER, SELFPAY ==
[2023-12-21 10:23] LABS: HCT 46.8 % (40.0-50.0); HGB 15.6 g/dL (13.5-17.5); MCHC 33.3 % (32.0-36.0); MCV 84 fL (80-95); MPV 9.2 fL (8.0-11.0); Platelet Count 237 10^3/uL (130-400); RBC 5.57 10^6/uL (4.36-5.78); RDW 13.2 % (11.8-14.1); RDW-SD 40.6 fL; WBC 8.29 10^3/uL (4.4-10.8)
[2023-12-21 10:24] LABS: Bilirubin Negative (Negative); Blood Moderate (Negative); Clarity Clear (Clear); Glucose Negative (Negative); Ketones Trace mg/dL (Negative); Leukocyte Esterase Negative (Negative); Nitrite Negative (Negative); Urobilinogen 0.2 mg/dL (Up to 0.2); pH 5.5 (5-8)
[2023-12-21 10:32] LABS: Bacteria Negative HPF (Negative); C & S Indicated? No; Casts Negative LPF (Negative); Crystals Negative HPF (Negative); Epithelial Cells Rare HPF (Negative); Mucus Trace (Negative); WBC Negative HPF (0-5)
[2023-12-21 11:16] LABS: ALT 22 U/L (16-63); AST 12 U/L (15-37); Albumin 3.5 g/dL (3.4-5.0); Alkaline Phosphatase 36 U/L (46-116); Anion Gap 12.7 mmol/L (3-11); BUN 16 mg/dL (7-18); Bilirubin, Total 0.6 mg/dL (0.2-1.0); CO2 25.3 mmol/L (21.0-32.0); Calcium 8.5 mg/dL (8.5-10.1); Chloride 102 mmol/L (98-107); Estimated GFR 88.88 (mL/min/1.73m2); Glucose 116 mg/dL (74-106); Potassium 4.1 mmol/L (3.5-5.1); Sodium 140 mmol/L (136-145); Total Protein 8.3 g/dL (6.4-8.2)
[2023-12-21 11:43] LABS: Vitamin D 25 Total 34.4 ng/mL (30-100)
[2023-12-21 18:58] LABS: Parathyroid Hormone,Intact 49 pg/mL (19-88)
== END 2023-12-21 10:34 | disposition home or self-care (01) ==
LOC: LBO 10:33
PROVIDERS: PCP Nurse Practitioner Family; Visit Provider Nurse Practitioner Family
DX: R31.0 Gross hematuria (principal); E21.0 Primary hyperparathyroidism; Z79.01 Long term (current) use of anticoagulants; E55.9 Vitamin D deficiency, unspecified
CPT/HCPCS: 36415; 80053; 82306; 85027; 81003; 81015; 83970

== ENCOUNTER 2024-01-14 09:18 | Outpatient (CLI) | payer OTHER, SELFPAY ==
[2024-01-14 18:10] LABS: PSA, Screening 0.6 ng/mL (<=3.5)
== END 2024-01-14 09:19 | disposition home or self-care (01) ==
LOC: LBO 09:24
PROVIDERS: PCP Nurse Practitioner Family; Visit Provider Nurse Practitioner Gerontology
DX: R39.9 Unspecified symptoms and signs involving the genitourinary system (principal)
CPT/HCPCS: 36415; 84153

== ENCOUNTER 2024-01-18 15:27 | Outpatient (REF) | payer OTHER, SELFPAY ==
[2024-01-18 16:35] LABS: ALT 21 U/L (16-63); AST 16 U/L (15-37); Albumin 3.4 g/dL (3.4-5.0); Alkaline Phosphatase 31 U/L (46-116); Anion Gap 8.3 mmol/L (3-11); BUN 17 mg/dL (7-18); Bilirubin, Total 0.6 mg/dL (0.2-1.0); CO2 26.7 mmol/L (21.0-32.0); CREATININE 1.1 mg/dL (0.70-1.30); Calcium 8.6 mg/dL (8.5-10.1); Calculated LDL 131 mg/dL (<100); Chloride 104 mmol/L (98-107); Cholesterol 184 mg/dL (<200); Estimated GFR 79.28 (mL/min/1.73m2); Glucose 109 mg/dL (74-106); HDL Cholesterol 39 mg/dL (40-60); Potassium 4.4 mmol/L (3.5-5.1); Sodium 139 mmol/L (136-145); Total Protein 7.9 g/dL (6.4-8.2); Triglyceride 74 mg/dL (<150)
[2024-01-18 16:47] LABS: Hemoglobin A1C 6.1 % (<5.7)
== END 2024-01-18 15:28 | disposition home or self-care (01) ==
LOC: NCHCN 15:27
PROVIDERS: PCP Nurse Practitioner Family; Visit Provider Nurse Practitioner Family
DX: E21.0 Primary hyperparathyroidism (principal); E78.5 Hyperlipidemia, unspecified; R73.03 Prediabetes
CPT/HCPCS: 80053; 80061; 83036

== ENCOUNTER 2024-02-11 06:17 | Day surgery (SDC) | payer OTHER, SELFPAY ==
[2024-02-11] VITALS (8 sets, daily range): BP systolic 93–135; BP diastolic 57–85; PULSE 55–69; RESP 9–16; TEMP 36–36.5; O2SAT 94–98; BMI 30.4
[2024-02-11] MEDS: Lactated Ringers 1,000 ML 80 ML IV (06:43)
[2024-02-11] MEDS: CIPROFLOXACIN 400 MG/200 ML BAG 200 MG IVPB (06:44)
--- NOTE | 2024-02-11 06:48 | HPE_ITS ---
Date of service: 02/11/24 Time of Service: 06:48 Assessment and Plan Assessment and plan (1) Jagdish hematuria: Status: Acute (2) Kidney stones: Status: Chronic Assessment and plan: For cystoscopy to complete his hematuria workup. We are not planning to address any of his kidney stones today. History of Present Illness History of Present Illness Chief Complaint: Hematuria Narrative: This is a 53-year-old gentleman who has a history of kidney stones and more recently has had gross painless hematuria. His most recent episode of gross hematuria occurred less than a week ago. He had a noncontrast CT scan ordered by his primary care provider. Nonobstructive kidney stones were seen. He presents for cystoscopy and retrograde pyelogram to complete his hematuria workup. He is on chronic anticoagulants. He uses smokeless tobacco on a daily basis. He has no previously diagnosed urologic malignancy. Review of Systems Narrative: No fevers or chills No vision change or dysphasia Hx hyperparathyroidism. No diabetes or thyroid dysfunction No shortness of breath, cough or hemoptysis No chest pain or palpitations No nausea, vomiting, hepatitis, ulcers, jaundice No seizures, strokes or peripheral neuropathy Hx DVT. No bleeding disorders or anemia Chronic back pain. 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) Prediabetes (Acute) Right lower quadrant pain (Acute) Jagdish hematuria (Acute) Kidney stones (Chronic) Venous embolism (Acute) Disorder of ear (Acute) Gout (Chronic) Hyperlipidemia (Acute) Vitamin D deficiency (Acute) Diverticula of colon (Acute) Left colon Screening for malignant neoplasm of colon performed (Acute) s/p ileostomy takedown (Acute) Anastomotic leak of intestine (Acute) Sigmoid stricture (Acute) Medical History (Updated 02/10/24 @ 11:54 by Parish Solis) History of thromboembolism 2021 History of DVT of lower extremity 2021 Renal calculus, left Diverticular disease of colon Dyspepsia Primary hyperparathyroidism s/p resection Surgical History Tonsillectomy and adenoidectomy Parathyroidectomy Colonoscopy - MAC (04/2023) 2017 Colectomy (09/23/17) reversal 01/20/18 Social History Smoking/Tobacco Use Status: Current every day Tobacco Type: smokeless tobacco Smoking risk assessment performed?: Yes Alcohol Intake: current Alcohol Intake frequency: a few times a month Drug use: Never Substance use type: does not use Housing: house Do you feel safe at home: Yes Do you feel safe in your relationship?: Yes Meds Allergies and Home Medications Allergies Allergy/AdvReac Type Severity Reaction Status Date / Time Penicillins Allergy Severe Anaphylaxsi Verified 02/10/24 11:55 s Home Medications Medication Instructions Recorded Confirmed Type lactobacillus comb no.10 20 2 ea PO HS 07/16/17 02/11/24 History billion cell capsule (Probiotic) acetaminophen 500 mg tablet 500 mg PO PRN PRN 08/27/17 02/11/24 History (Tylenol Extra Strength) triamcinolone acetonide 0.1 % 1 applic topical DAILY 02/28/19 02/11/24 History topical cream apixaban 5 mg tablet (Eliquis) 5 mg PO BID 04/30/23 02/10/24 History calcium carbonate 600 mg-vitamin 1 cap PO BID 04/30/23 02/11/24 History D3 12.5 mcg (500 unit) capsule (Calcium 600 with Vitamin D3) Exam Const General: cooperative and no acute distress Neck Neck: supple Resp Effort & Inspection: normal respiratory effort Auscultation: clear to auscultation bilaterally Cardio Rate: regular rate Rhythm: regular rhythm GI Palpation: soft and no masses Neuro General: patient alert, patient awake and patient oriented x3 Results Imaging Imaging Studies: He has multiple kidney stones, the largest of which is in the left lower pole. Time Spent Time spent with Patient: <40 minutes Time was spent: other
--- NOTE | 2024-02-11 07:15 | ANES.PREOP_ITS ---
General Info Date of Service Date Performed: 02/11/24 Height: 5 ft 6 in Weight: 85.4 kg Body Mass Index (BMI): 30.4 Surgical Procedure: Operation Date: 02/11/24 07:40 Proposed Procedure Side Surgeon p Cystoscopy/Retrograde Bilateral Aníbal Alexander MD Actual Procedure Side Surgeon p Cystoscopy/Retrograde Bilateral Aníbal Alexander MD Pre-Op Diagnosis Post-Op Diagnosis Hematuria Hematuria Meds Allergies and Home Medications Allergies Allergy/AdvReac Type Severity Reaction Status Date / Time Penicillins Allergy Severe Anaphylaxsi Verified 02/10/24 11:55 s Home Medication Medication Instructions Recorded lactobacillus comb no.10 20 2 ea PO HS 07/16/17 billion cell capsule (Probiotic) acetaminophen 500 mg tablet 500 mg PO PRN PRN 08/27/17 (Tylenol Extra Strength) triamcinolone acetonide 0.1 % 1 applic topical DAILY 02/28/19 topical cream apixaban 5 mg tablet (Eliquis) 5 mg PO BID 04/30/23 calcium carbonate 600 mg-vitamin 1 cap PO BID 04/30/23 D3 12.5 mcg (500 unit) capsule (Calcium 600 with Vitamin D3) Current Visit Medications: Current Medications Generic Name Dose Route Start Last Admin Trade Name Freq PRN Reason Stop Dose Admin Ringer's Solution 1,000 mls @ 80 mls/hr 02/11/24 06:00 02/11/24 06:43 IV 02/11/24 23:59 80 mls/hr INFUSION BING Administration Ciprofloxacin 400 mg in 200 mls @ 200 mls/hr 02/11/24 06:00 02/11/24 06:44 Cipro I.V. 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 Z79.01 Prediabetes R73.03 Right lower quadrant pain R10.31 Jagdish hematuria R31.0 Kidney stones N20.0 Venous embolism I82.90 Disorder of ear H93.90 Gout M10.9 Hyperlipidemia E78.5 Vitamin D deficiency E55.9 Diverticula of colon K57.30 Screening for malignant neoplasm of colon performed Z12.11 s/p ileostomy takedown Anastomotic leak of intestine K91.89 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 Medical History Medical History (Updated 02/10/24 @ 11:54 by Parish Solis) History of thromboembolism 2021 History of DVT of lower extremity 2021 Renal calculus, left Diverticular disease of colon Dyspepsia Primary hyperparathyroidism s/p resection Surgical History Surgical History Tonsillectomy and adenoidectomy Parathyroidectomy Colonoscopy - MAC (04/2023) 2017 Colectomy (09/23/17) reversal 01/20/18 Tobacco Smoking/Tobacco Use Status: Current every day Tobacco Type: smokeless tobacco Alcohol Alcohol Intake: current Alcohol intake frequency: a few times a month Substance Use Substance use: Never Substance use type: does not use Vital Signs and Lab Results Vital Signs Most Recent Vital Signs in EMR: Most Recent Vital Signs Temp Pulse Resp BP Pulse Ox 36.5 C 69 16 135/85 96 02/11/24 06:49 02/11/24 06:49 02/11/24 06:49 02/11/24 06:49 02/11/24 06:49 Lab Results Blood Type / Crossmatch: No Data to Display Complete Blood Count: No Data to Display Complete Metabolic Panel: Sodium 139 mmol/L (136-145) 01/18/24 09:50 Potassium 4.4 mmol/L (3.5-5.1) 01/18/24 09:50 Chloride 104 mmol/L (98-107) 01/18/24 09:50 Carbon Dioxide 26.7 mmol/L (21.0-32.0) 01/18/24 09:50 BUN 17 mg/dL (7-18) 01/18/24 09:50 Creatinine 1.1 mg/dL (0.70-1.30) 01/18/24 09:50 Est GFR (CKD-EPI 2020) 79.28 (mL/min/1.73m2) 01/18/24 09:50 Calcium 8.6 mg/dL (8.5-10.1) 01/18/24 09:50 Albumin 3.4 g/dL (3.4-5.0) 01/18/24 09:50 Glucose 109 mg/dL (74-106) H 01/18/24 09:50 Hemoglobin A1c 6.1 % (<5.7) H 01/18/24 09:50 Liver Function Panel: Alanine Aminotransferase (ALT/SGPT) 21 U/L (16-63) 01/18/24 09: 50 Aspartate Amino Transf (AST/SGOT) 16 U/L (15-37) 01/18/24 09:50 Coagulation Panel: No Data to Display Cardiac Panel: No Data to Display Arterial Blood Gas: No Data to Display Venous Blood Gas: No Data to Display Pancreas Panel: No Data to Display Thyroid Panel: No Data to Display Infectious Disease: No Data to Display Blood Cultures: No Data to Display Toxicology Panel: No Data to Display Anesthesia Assessment and Plan Anesthesia History Personal History: No History of Anesthesia Complications Family History: No Family History of Anesthesia Complications Exercise Tolerance Exercise Tolerance: Metabolic Equivalents>4 Cardiac & Pulmonary Exam Cardiac Exam: Normal S1/S2 Heart Sounds Pulmonary Exam: Clear Bilateral Breath Sounds Implantable Cardiac Device Does patient have a Pacemaker or an ICD?: No Airway Exam Known Difficult Airway: No Mallampati Class: 1 Mouth Opening: Normal (> 3cm) Thyromental Distance: Less than 3 cm Neck Range of Motion: Full ROM Neck Circumference: Normal Teeth Condition: Normal Dentition ASA Classification ASA Score: ASA 2 Emergency Case?: No NPO Status NPO Status: NPO Clears >2 hours, Solids >8 hours Anesthesia Plan Resuscitation Status: Full Code Anesthesia Technique: General Anesthesia Airway Planned: LMA Monitors Used: Standard Monitors
[2024-02-11] MEDS: Omnipaque 300 MG/ML 50 ML BTL (07:45)
[2024-02-11] MEDS: Lidocaine 2% Jelly 6 ML SYR (07:45)
--- NOTE | 2024-02-11 08:06 | W.PM.DSUDISC ---
Date of service: 02/11/24 Time of Service: 08:06 Discharge Plan Disposition Patient Disposition: Home Discharge Details Reason For Visit: cystoscopy Attending Provider: Aníbal Alexander Primary Care Provider: REMIGIO DEMPSEY Home Meds and New Rx's Prescriptions: No Action Eliquis 5 mg tablet 5 mg PO BID Hold Instructions: Resume on 05/18/23. calcium carbonate-vitamin D3 [Calcium 600 with Vitamin D3] 600 mg-12.5 mcg (500 unit) capsule 1 cap PO BID Probiotic 1 EACH capsule 2 ea PO HS acetaminophen [Tylenol Extra Strength] 500 MG tablet 500 mg PO PRN PRN triamcinolone acetonide 0.1 % Cream 1 applic TOPICAL DAILY Discharge Instructions Additional Instructions: You may restart your Eliquis once you no longer see blood in the urine You will have a followup appt in 6 to 8 weeks and we will do a renal US in the office at that appointment. Discharge Orders Discharge Orders: Discharge Order (Routine); Ordered 02/11/24 Ordered By: Aníbal Alexander DS: Diagnosis Discharge Diagnosis (1) Jagdish hematuria: Status: Acute (2) Kidney stones: Status: Chronic
--- NOTE | 2024-02-11 08:10 | DI.RAD_ITS ---
Exam(s) XR RETROGRADE IN OR EXAM: XR RETROGRADE IN OR CLINICAL HISTORY: Hematuria. TECHNIQUE: 2D digital imaging was performed. COMPARISON: No exams were available for comparison FINDINGS: Fluoroscopy provided during urologic procedure. See procedure report for details. Total fluoroscopy time 34 seconds IMPRESSION: Radiation exposure index/cumulative dose:ruufs Willingham= 7.5225 mGy DATA REPOSITORY: RADIATION DOSE DELIVERED:
--- NOTE | 2024-02-11 08:11 | ROE_ITS ---
Date of service: 02/11/24 Time of Service: 08:11 Operative Note Operative Note DATE OF PROCEDURE: 02/11/24 PRE-OP DIAGNOSIS: Gross hematuria Left ureteral stone PROCEDURE: Cystoscopy, bilateral retrograde pyelogram, left ureteroscopy with stone extraction SURGEON: Aníbal Alexander ANESTHESIA TYPE: Local By Surgeon and General LMA/ETT Refer to Anesthesia Record ESTIMATED BLOOD LOSS: 5 PATHOLOGY: other (stone for chemical analysis) COMPLICATIONS: None Patient was transported to: PACU Patient's condition: stable Indications: This is a 53-year-old gentleman who was referred to see us because of episodes of gross painless hematuria. His evaluation included a noncontrast CT scan which demonstrated bilateral nonobstructing kidney stones. He presents now for cystoscopy with bilateral retrograde pyelogram to complete his hematuria workup. Findings: left distal ureteral filling defect c/w stone that migrated from kidney into ureter Procedure Description: The patient was given preoperative antibiotics and brought to the operating room on 02/11/2024. After successful induction of general anesthesia, he was placed in the dorsal lithotomy position. His genitalia was prepped and draped. 2% Xylocaine jelly was instilled into the urethra to act as a local anesthetic. A 22 Bulgarian rigid cystoscope was then passed through the urethra into the bladder. The urethra was inspected with the 30 degree lens. The pendulous, bulbar and membranous urethra's appeared normal with no strictures. The prostatic urethra showed some lateral lobe enlargement and a slightly elevated bladder neck. There was no evidence of a median lobe of the prostate. The bladder neck was entered and the bladder was inspected using both the 30 and a 70 degree lens. Both ureteral orifices appeared normal with no blood coming from either side. The remainder the bladder was smooth-walled with no papillary or nodular lesions. Each ureteral orifice was cannulated with a 5 Bulgarian access catheter. Retrograde pyelograms were obtained by injecting Omnipaque through the access catheter under fluoroscopic guidance. On the right side, the ureter and collecting system appeared normal with no filling defects. On the left side however, there was a left distal ureteral filling defect with dilation of the proximal ureter and collecting system. We passed a guidewire through the lumen of the access catheter and removed the catheter leaving the wire in place. I then passed a semirigid ureteroscope through the urethra and into the bladder. The scope was advanced into the left ureteral orifice and a stone was visualized in the distal ureter. The stone was grasped in a Hilda stone basket and removed in its entirety. The stone was then sent to pathology for chemical analysis. The bladder was emptied and the safety wire was removed. The patient tolerated this procedure well with no complications.
[2024-02-11] MEDS: Phenazopyridine 200 MG TAB PO (09:03)
--- NOTE | 2024-02-11 09:42 | W.ANESPOSTOP ---
Postoperative Evaluation Date, Time and Location Date Performed: 02/11/24 Time Performed: 09:00 Patient Location: Day Surgery Unit Vital Signs Most Recent Imported Vital Signs: Most Recent Vital Signs Temp Pulse Resp BP Pulse Ox 36 C L 55 L 16 119/76 98 02/11/24 09:27 02/11/24 09:27 02/11/24 09:27 02/11/24 09:27 02/11/24 09:27 Pain Score Most Recent Pain Score: Most Recent Pain Score Pain Level 0 02/11/24 09:27 Assessment Mental Status: Awake (Alert & Oriented to Patient Baseline) Airway and Respiratory Function: Patent airway with normal (patient baseline) respiratory exam Cardiovascular Function: Hemodynamically Stable Hydration Status: Adequately Hydrated Nausea & Vomiting: No Nausea or Vomiting Pain: Pt. Denies Any Pain Peripheral Nerve Block: Patient did not receive a nerve block
[2024-02-17 23:04] LABS: Source: Left Ureter
== END 2024-02-11 10:07 | disposition home or self-care (01) ==
PROVIDERS: PCP Nurse Practitioner Family; Visit Provider Urology
PROC: (CPT 74450; principal; 2024-02-11 07:30)
DX: N20.0 Calculus of kidney (principal); R31.0 Gross hematuria
CPT/HCPCS: 52352; 74420; 82365; J0744; J1100; J2001; J2371; J2405; J2704; Q9967

== ENCOUNTER 2025-06-14 18:42 | Outpatient (REF) | payer OTHER, SELFPAY ==
[2025-06-14 21:10] LABS: HCT 44.0 % (40.0-50.0); HGB 14.8 g/dL (13.5-17.5); MCH 29.0 pg (27.0-33.0); MCHC 33.6 % (32.0-36.0); MCV 86 fL (80-95); MPV 9.7 fL (8.0-11.0); Platelet Count 269 10^3/uL (130-400); RBC 5.11 10^6/uL (4.36-5.78); RDW 13.0 % (11.8-14.1); RDW-SD 40.3 fL; WBC 6.96 10^3/uL (4.4-10.8)
[2025-06-14 21:32] LABS: Hemoglobin A1C 5.9 % (<5.7)
[2025-06-14 21:58] LABS: ALT 25 U/L (16-63); AST 14 U/L (15-37); Albumin 3.7 g/dL (3.4-5.0); Alkaline Phosphatase 30 U/L (46-116); Anion Gap 11.5 mmol/L (3-11); BUN 26 mg/dL (7-18); Bilirubin, Total 0.8 mg/dL (0.2-1.0); CO2 26.5 mmol/L (21.0-32.0); Calcium 8.9 mg/dL (8.5-10.1); Calculated LDL 135 mg/dL (<100); Chloride 104 mmol/L (98-107); Cholesterol 213 mg/dL (<200); Estimated GFR 78.79 (mL/min/1.73m2); Glucose 108 mg/dL (74-106); HDL Cholesterol 32 mg/dL (>or=40); Potassium 4.1 mmol/L (3.5-5.1); Sodium 142 mmol/L (136-145); Total Protein 7.4 g/dL (6.4-8.2); Triglyceride 230 mg/dL (<150); Vitamin D 25 Total 44 ng/mL (30-100)
== END 2025-06-14 18:43 | disposition home or self-care (01) ==
LOC: NCHCN 18:42
PROVIDERS: PCP Nurse Practitioner Family; Visit Provider Nurse Practitioner Family
DX: Z00.00 Encounter for general adult medical examination without abnormal findings (principal)
CPT/HCPCS: 80053; 80061; 82306; 85027; 83036; 83970